=== PATIENT | male | born 1970 | race Caucasian/White ===

== ENCOUNTER 2025-09-24 07:03 | Outpatient (CLI) | payer MEDICARE, OTHER, SELFPAY | END 2025-09-24 07:04 | disposition home or self-care (01) | LOC: AMB 10-18 03:04 | PROVIDERS: Visit Provider Family Medicine | DX: S09.90XA Unspecified injury of head, initial encounter (principal); W18.30XA Fall on same level, unspecified, initial encounter; Y92.199 Unspecified place in other specified residential institution as the place of occurrence of the external cause | CPT/HCPCS: A0425; A0427 ==